=== PATIENT | male | born 1975 | race Hispanic/Latino ===

== ENCOUNTER 2022-05-17 00:38 | Emergency (ER) | payer SELFPAY ==
--- NOTE | ~2022-05-17 | XR_ITS ---
EXAMINATION: XR chest 1V portable DATE: 05/17/2022 01:56 INDICATION: Overdose. TECHNIQUE: A single frontal view of the chest was obtained. COMPARISON: None. FINDINGS: The chest demonstrates clear lungs without pneumonia, pleural effusion, or pneumothorax. Th e heart size is normal. IMPRESSION: 1. No acute cardiopulmonary disease. Reviewed, dictated and finalized at location A.
[2022-05-17 00:36] VITALS: BP 166/86; PULSE 94; RESP 16; TEMP 36.6; O2SAT 99
[2022-05-17] MEDS: ONDANSETRON INJ 4 MG/2 ML VIAL IV PUSH (01:01)
[2022-05-17 01:12] VITALS: PULSE 86
[2022-05-17 01:13] VITALS: RESP 18
--- NOTE | 2022-05-17 01:28 | ED.OVERDOSE ---
HPI - Overdose General Chief Complaint: Overdose Stated Complaint: od Limitations: language barrier and intoxication History of Present Illness HPI Narrative: Patient is a 46-year-old Hungarian-speaking male here after possible overdose. Patient admits to using cocaine tonight. He was attending a constitution party with his brothers and after using cocaine many of them became unresponsive. EMS was called to scene by patient's . According to EMS patient had decreased responsiveness but was protecting his airway, Narcan was administered and he woke up. Patient is now vomiting but has no other complaints. Currently alert and oriented x4. unaware of potential other contaminants in cocaine but apparently all patients were responsive to narcan. Related Data Allergies Allergy/AdvReac Type Severity Reaction Status Date / Time No Known Allergies Allergy Verified 05/17/22 01:15 Review of Systems Review of Systems: Gen.: Denies fevers or chills Eyes: Denies eye pain or visual change ENT: Denies congestion Respiratory: Denies shortness of breath or cough CV: Denies chest pain or palpitations GI: Denies abdominal pain nausea, emesis or diarrhea denies burning, urgency, frequency or hematuria Musculoskeletal: Denies back pain or muscle pain Neuro: Denies numbness, tingling, weakness or focal weakness Skin: Denies rash Except as documented, all other systems reviewed and negative Exam Narrative: APPEARANCE: Actively vomiting yellow emesis Head: Normocephalic and atraumatic. EYES: PERRLA/EOMI, conjunctivae clear NOSE: No nasal drainage EARS: External ear normal in appearance THROAT: Oropharynx is clear. Mucous membranes are moist. NECK: Supple. No adenopathy, no masses. RESPIRATORY: Airway patent, respirations nonlabored. Clear to auscultation bilaterally, no rales, rhonchi, wheezing. CARDIOVASCULAR: Regular rate and rhythm without murmurs, rubs, or gallops. ABDOMINAL: Normoactive bowel sounds. Soft, nontender, nondistended. No rebound tenderness or guarding. MUSCULOSKELETAL: Extremities are warm and well-perfused. Moves all extremities well. No edema. NEURO: Normal speech. No focal neurologic deficits. SKIN: Skin is warm and dry. No rashes. PSYCHIATRIC: Normal affect/mood. Course Vital Signs Vital signs: Vital Signs Temperature 97.9 F 05/17/22 00:36 Pulse Rate 94 05/17/22 00:36 Respiratory Rate 16 05/17/22 00:36 Blood Pressure 166/86 H 05/17/22 00:36 Pulse Oximetry 99 05/17/22 00:36 Temperature 97.9 F 05/17/22 00:36 Pulse Rate 78 05/17/22 03:10 Respiratory Rate 16 05/17/22 03:10 Blood Pressure 128/86 05/17/22 03:10 Pulse Oximetry 100 05/17/22 03:10 MDM - Overdose MDM Narrative Medical decision making narrative: 46-year-old male here for evaluation after suspected overdose given that he was unresponsive after using what he says was cocaine at a constitution party and became responsive after EMS administered Narcan. Patient arrives vomiting nonbloody emesis, GCS is 15. He is alert, oriented, has normal vital signs. Zofran was administered with improvement of vomiting; tolerating PO. Chest x-ray is clear by preliminary read. Patient was observed 3 hours in the emergency department without hypoxia, AMS. Stable for discharge home at this time. and daughter at bedside and updated on findings with patient's consent. Advised patient dispose of the cocaine that he used as it was likely laced with an opioid. Discharge Plan Discharge Clinical Impression: Drug overdose Patient Disposition: Home, Self-Care Condition: Stable Instructions: Antibiotic Form, Adult Overdose (ED) Additional Instructions: Your chest x-ray is clear today. It appears the cocaine that you used may have been laced with an opioid such as fentanyl or heroin. You were treated with Narcan. Return to the ED if you become confused, have worsening nausea and vomiting, have other concerning symptoms. [facility] radiograf?a de t?rax est?
[2022-05-17 02:02] VITALS: BP 124/78; PULSE 82; RESP 16; O2SAT 98
[2022-05-17 03:10] VITALS: BP 128/86; PULSE 78; RESP 16; O2SAT 100
== END 2022-05-17 03:42 | disposition home or self-care (01) ==
PROVIDERS: Emergency Provider Physician Assistant
DX: R40.4 Transient alteration of awareness (principal); T40.5X1A Poisoning by cocaine, accidental (unintentional), initial encounter
CPT/HCPCS: 71045; 96374; 99284; J2405

== ENCOUNTER 2022-05-17 11:20 | Emergency (ER) | payer SELFPAY ==
[2022-05-17 11:22] VITALS: BP 174/95; PULSE 88; RESP 18; TEMP 36.6; O2SAT 100
--- NOTE | 2022-05-17 12:35 | ED.DIZZY ---
HPI - Dizziness General Chief Complaint: Dizziness Stated Complaint: still dizzy from cocaine use (seen yesterday) Time Seen by Provider: 05/17/22 12:35 Source: patient and family Mode of arrival: ambulatory Limitations: no limitations History of Present Illness HPI Narrative: 46 years old male, does not speak [place] came to the emergency room by private car with his son who speaks [place] telling me that he been having intermittent dizziness since he woke up this morning, last average 1 to 2 minutes each time, denies any aggravating or relieving factors. Patient usually eats his breakfast early, did not eat his breakfast until now which is 1:30 PM. patient was seen in our emergency room yesterday for similar symptoms secondary to overdose on cocaine/contaminated cocaine, and was unresponsive, became responsive after Narcan. Patient did not use any drugs since leaving the emergency room until now. Currently feeling okay. Was able to stand up and walk but still feeling woozy. He denies any fever, chills, nausea, vomiting, headache, chest pain, shortness of breath, back pain or abdominal pain. Related Data Allergies Allergy/AdvReac Type Severity Reaction Status Date / Time No Known Allergies Allergy Verified 05/17/22 01:15 Review of Systems Review of Systems: All systems reviewed & are unremarkable except as noted in HPI and below Exam Narrative: General appearance: Well-developed, well-nourished Skin: Normal color Head: Normocephalic, nontraumatic Eyes: Clear conjunctiva ENT: Oropharynx normal, ears normal, nose normal Neck: Supple, nontender Chest and respiratory: Airway patent, no respiratory distress, no accessory muscle use Heart: Regular rate/rhythm Abdomen: Soft, nontender, no organomegaly, quiet bowel sounds Vascular: Normal peripheral pulses, normal capillary refill. Musculoskeletal: Normal range of motion, nontender back Neurologic: Alert and oriented ?3, [employer] is normal as tested, no gross motor deficit Course Vital Signs Vital signs: Vital Signs Temperature 36.6 C 05/17/22 11:22 Pulse Rate 88 05/17/22 11:22 Respiratory Rate 18 05/17/22 11:22 Blood Pressure 174/95 H 05/17/22 11:22 Pulse Oximetry 100 05/17/22 11:22 Oxygen Delivery Room Air 05/17/22 11:22 Temperature 36.6 C 05/17/22 11:22 Pulse Rate 88 05/17/22 11:22 Respiratory Rate 18 05/17/22 11:22 Blood Pressure 174/95 H 05/17/22 11:22 Pulse Oximetry 100 05/17/22 11:22 Oxygen Delivery Room Air 05/17/22 11:22 MDM - Dizziness MDM Narrative Medical decision making narrative: This is a second visit to our emergency room over the last 24 hours with the same symptoms. Patient came to our emergency room yesterday with cocaine/contaminated cocaine overdose, unresponsive, responsive after Narcan. Physical examination is unremarkable. Patient did not have any blood work-up or imaging yesterday. My plan to get blood work-up and imaging to rule out any underlying cause to make his dizziness worse. Like dehydration, electrolyte imbalance, rhabdomyolysis, intracranial abnormalities, cardiac arrhythmia, thyroid abnormality. Patient declined further evaluation and would like to go home. I declare that I have personally explained to the patient the risks and consequences involved in leaving this facility at this time. the benefits of continued treatment and/or hospitalization. And the alternatives. If any. to continued treatment and/or hospitalization. if applicable.I have not identified any psychosis, drugs, mental illness, or medical illness that alters decision-making capacity (reasoning abilities ). Critical Care Time Critical Care Ti
== END 2022-05-17 13:10 | disposition left against medical advice (07) ==
PROVIDERS: Emergency Provider Emergency Medicine
DX: R42 Dizziness and giddiness (principal); T40.5X1A Poisoning by cocaine, accidental (unintentional), initial encounter
CPT/HCPCS: 99281